=== PATIENT | female | born 1970 | race American Indian/Alaskan Native ===

== ENCOUNTER 2016-07-25 18:03 | Emergency (ER) | payer SELFPAY ==
--- NOTE | 2016-07-25 18:44 | Emergency Department Report ---
Chief Complaint: Abdominal Pain Stated Complaint: SIDE PAIN Time Seen by Provider: 07/25/16 18:41 - HPI History of Present Illness: Patient is a 45 y/o female who presents due to bilateral flank pain x 2 hours ago. Patient denies any dysuria, hematuria. Patient c/o vaginal discharge. Patient denies any nausea, vomiting or diarrhea. Patient denies any fever or chills - ROS Review of Systems: see hpi - Exam Vital Signs: Vital Signs 07/25/16 18:14 Temperature 98.2 F Pulse Rate 106 H Respiratory 18 Rate Blood Pressure 164/102 O2 Sat by Pulse 100 Oximetry Physical Exam: patient had bilateral flank tenderness MSE screening note: Focused history and physical exam performed. Due to findings the following was ordered:abd pain protocol ED Disposition for MSE Condition: Stable Instructions: Abdominal Pain (ED)
[2016-07-25 20:07] LABS: Basophils % (Auto) 1.3 % (0.0-1.8); Eosinophils % (Auto) 1.1 % (0.0-4.3); Hematocrit 26.7 % (30.3-42.9); Mean Corpuscular HGB Conc 30 % (30-34); Platelet Count 539 K/mm3 (140-440); Red Blood Count 4.27 M/mm3 (3.65-5.03); Red Cell Distribution Width 18.3 % (13.2-15.2); White Blood Count 8.1 K/mm3 (4.5-11.0)
[2016-07-25 20:08] LABS: Mean Corpuscular Hemoglobin 19 pg (28-32); Mean Corpuscular Volume 63 fl (79-97)
[2016-07-25 20:22] LABS: Alanine Aminotransferase 8 units/L (7-56); Albumin 4.4 g/dL (3.9-5); Albumin/Globulin Ratio 1.2 %; Alkaline Phosphatase 68 units/L (35-129); BUN/Creatinine Ratio 16.66; Bilirubin,Total 0.2 mg/dL (0.1-1.2); Blood Urea Nitrogen 10 mg/dL (7-17); Calcium 8.9 mg/dL (8.4-10.2); Carbon Dioxide 25 mmol/L (22-30); Chloride 98.8 mmol/L (98-107); Glucose 83 mg/dL (65-100); Lipase 32 units/L (13-60); Potassium 3.6 mmol/L (3.6-5.0); Sodium 140 mmol/L (137-145); Total Protein 8.2 g/dL (6.3-8.2)
[2016-07-25 20:28] LABS: Bilirubin,Direct < 0.2 mg/dL (0-0.2)
[2016-07-25 20:29] LABS: Anion Gap 20 mmol/L
[2016-07-25 21:49] LABS: Bilirubin,Urine NEG (Negative); Blood,Urine NEG (Negative); Ketones,Urine NEG (Negative); Leukocyte Esterase,Urine NEG (Negative); Mucus,Urine FEW /HPF; Nitrite,Urine NEG (Negative); Protein,Urine <15 mg/dL mg/dL (Negative); RBC,Urine < 1.0 /HPF (0.0-6.0); Urobilinogen,Urine < 2.0 mg/dL (<2.0)
[2016-07-25 21:53] LABS: WBC,Urine < 1.0 /HPF (0.0-6.0)
[2016-07-26 06:37] VITALS: BP 151/82
--- NOTE | 2016-07-26 06:41 | Emergency Department Report ---
ED General Adult HPI - General Chief complaint: Abdominal Pain Stated complaint: SIDE PAIN Time Seen by Provider: 07/26/16 06:34 Source: patient, RN notes reviewed, old records reviewed Mode of arrival: Ambulatory Limitations: No Limitations - History of Present Illness Initial comments: THIS IS A 45-year-old female, previously unknown to me. Last menstrual period is June 12. She endorses a past medical history of tubal ligation, resolved by lower extremity compartment syndrome, and hypertension. She has a primary care doctor , but cannot RECALL their name. The patient endorses a past medical history of heavy menstruation. She denies hematemesis and bright red blood per rectum. She is not currently vaginally bleeding. The patient presents to the ER with resolved bilateral flank pain. The flank pain was achy, and she reports that she felt constipated. However, she reports that she had a bowel movement. She is passing gas. She denies irritative and obstructive urinary symptoms. She describes nonspecific whitish vaginal discharge. There is no vaginal pain or vaginal burning. She is sexually active with a male partner, denies a history of dyspareunia. No chest pain, no shortness of breath, no leg pain, no leg swelling, no recent trips greater than 4 hours, does not take control tablets. -: Gradual Location: back Severity scale (0 -10): 0 Consistency: now resolved Improves with: none Worsens with: none Associated Symptoms: denies: confusion, chest pain, cough, diaphoresis, fever/ chills, headaches, loss of appetite, malaise, nausea/vomiting, rash, seizure, shortness of breath, syncope, weakness - Related Data Home Medications Medication Instructions Recorded Confirmed Last Taken Hydrochlorothiazide [HCTZ] 25 mg PO DAILY 07/26/16 07/26/16 07/25/16 Lisinopril [Zestril] 20 mg PO QDAY 07/26/16 07/26/16 07/25/16 Previous Rx's Medication Instructions Recorded Last Taken Type Butoconazole Nitrate [Gynazole 1] 5 gm VG QDAY #3 crm.pf.christin 07/26/16 Unknown Rx Allergies Allergy/AdvReac Type Severity Reaction Status Date / Time codeine Allergy Unknown Verified 07/25/16 18:17 promethazine HCl Allergy Unknown Verified 07/25/16 18:17 [From Phenergan] ED Review of Systems ROS: Stated complaint: SIDE PAIN Other details as noted in HPI Constitutional: denies: malaise, weakness Eyes: denies: eye discharge ENT: denies: epistaxis Respiratory: denies: stridor Gastrointestinal: abdominal pain Genitourinary: discharge, abnormal menses Musculoskeletal: denies: arthralgia, myalgia Skin: denies: rash Neurological: denies: as per HPI, headache, weakness Psychiatric: denies: depression ED Past Medical Hx - Past Medical History Hx Hypertension: Yes - Surgical History Additional Surgical History: RLL compartment syndrome, tubaligation - Social History Smoking Status: Never Smoker Substance Use Type: None - Medications Home Medications: Home Medications Medication Instructions Recorded Confirmed Last Taken Type Butoconazole Nitrate [Gynazole 1] 5 gm VG QDAY #3 crm.pf.christin 07/26/16 Unknown Rx Hydrochlorothiazide [HCTZ] 25 mg PO DAILY 07/26/16 07/26/16 07/25/16 History Lisinopril [Zestril] 20 mg PO QDAY 07/26/16 07/26/16 07/25/16 History ED Physical Exam - General Limitations: No Limitations General appearance: alert, in no apparent distress - Head Head exam: Present: atraumatic, normocephalic - Eye Eye exam: Present: normal appearance, EOMI. Absent: nystagmus - ENT ENT exam: Present: normal exam, normal orophraynx, mucous membranes moist, normal external ear exam - Neck Neck exam: Present: normal inspection, full ROM. Absent: tenderness, meningismus - Respiratory Respiratory exam: Present: normal lung sounds bilaterally. Absent: respiratory distress, wheezes, rales, rhonchi, stridor, decreased breath sounds - Cardiovascular Cardiovascular Exam: Present: regular rate, normal rhythm, normal heart sounds. Absent: bradycardia, tachycardia, irregular rhythm, systolic murmur, diastolic murmur, rubs, gallop - GI/Abdominal GI/Abdominal exam: Present: soft, normal bowel sounds. Absent: distended, tenderness, guarding, rebound, rigid, pulsatile mass - External exam: Present: normal external exam Speculum exam: Present: normal speculum exam, vaginal discharge. Absent: vaginal bleeding Bi-manual exam: Present: normal bi-manual exam, other (escorted by Rancho Santos RN) . Absent: cervical motion tendernes, adnexal tenderness, adnexal mass - Extremities Exam Extremities exam: Present: normal inspection, full ROM, normal capillary refill. Absent: tenderness, pedal edema, joint swelling, calf tenderness - Back Exam Back exam: Present: normal inspection, full ROM. Absent: tenderness, CVA tenderness (R), CVA tenderness (L), muscle spasm, paraspinal tenderness, vertebral tenderness - Neurological Exam Neurological exam: Present: alert, oriented X3, normal gait, other (Extraocular movements intact. Tongue midline. No facial droop. Facial sensation intact to light touch in the V1, V2, V3 distribution bilaterally. 5 and 5 strength in 4 extremities.. Sensation is intact to light touch in 4 extremities.). Absent : motor sensory deficit - Psychiatric Psychiatric exam: Present: normal affect, normal mood - Skin Skin exam: Present: warm, dry, intact, normal color. Absent: rash ED Course Vital Signs 07/25/16 07/26/16 07/26/16 18:14 03:25 06:37 Temperature 98.2 F 97.8 F Pulse Rate 106 H 68 73 Respiratory 18 20 18 Rate Blood Pressure 164/102 Blood Pressure 149/108 151/82 [Right] O2 Sat by Pulse 100 100 97 Oximetry 07/26/16 08:00 Temperature Pulse Rate Respiratory 18 Rate Blood Pressure Blood Pressure [Right] O2 Sat by Pulse 97 Oximetry - Reevaluation(s) Reevaluation #1: 07/26/16 07:40 Differential diagnosis: Urinary tract infection, vaginitis, constipation, asymptomatic anemia, asymptomatic hypertension Assessment and plan: 55-year-old female with resolved bilateral flank pain. She is afebrile with reassuring vital signs, with the exception of slight hypertension. There is no CVA tenderness, there is no abdominal tenderness, there is no gynecologic tenderness. She declines pain medication. She is somewhat anemic, this is most likely chronic by history, and she is asymptomatic. She is instructed to follow-up with a coil connector for her asymptomatic anemia. She is instructed to follow with her primary care doctor for her hypertension. Vital signs have improved prior to discharge. Wet prep is pending. ED Medical Decision Making - Lab Data Result diagrams: 07/25/16 19:37 07/25/16 19:37 Vital Signs 07/25/16 07/26/16 07/26/16 18:14 03:25 06:37 Temperature 98.2 F 97.8 F Pulse Rate 106 H 68 73 Respiratory 18 20 18 Rate Blood Pressure 164/102 Blood Pressure 149/108 151/82 [Right] O2 Sat by Pulse 100 100 97 Oximetry Lab Results 07/25/16 07/25/16 07/25/16 Range/Units 19:37 19:37 Unknown WBC 8.1 (4.5-11.0) K/mm3 RBC 4.27 (3.65-5.03) M/mm3 Hgb 8.0 L (10.1-14.3) gm/dl Hct 26.7 L (30.3-42.9) % MCV 63 L (79-97) fl MCH 19 L (28-32) pg MCHC 30 (30-34) % RDW 18.3 H (13.2-15.2) % Plt Count 539 H (140-440) K/mm3 Lymph % (Auto) 45.3 H (13.4-35.0) % [place] % (Auto) 11.4 H (0.0-7.3) % Eos % (Auto) 1.1 (0.0-4.3) % Baso % (Auto) 1.3 (0.0-1.8) % Lymph # 3.7 (1.2-5.4) K/mm3 [place] # 0.9 H (0.0-0.8) K/mm3 Eos # 0.1 (0.0-0.4) K/mm3 Baso # 0.1 (0.0-0.1) K/mm3 Seg Neutrophils % 40.9 (40.0-70.0) % Seg Neutrophils # 3.3 (1.8-7.7) K/mm3 Sodium 140 (137-145) mmol/L Potassium 3.6 (3.6-5.0) mmol/L Chloride 98.8 (98-107) mmol/L Carbon Dioxide 25 (22-30) mmol/L Anion Gap 20 mmol/L BUN 10 (7-17) mg/dL Creatinine 0.6 L (0.7-1.2) mg/dL Estimated GFR > 60 ml/min BUN/Creatinine Ratio 16.66 % Glucose 83 (65-100) mg/dL Calcium 8.9 (8.4-10.2) mg/dL Total Bilirubin 0.2 (0.1-1.2) mg/dL Direct Bilirubin < 0.2 (0-0.2) mg/dL Indirect Bilirubin 0.0 mg/dL AST 17 (5-40) units/L ALT 8 (7-56) units/L Alkaline Phosphatase 68 (35-129) units/L Total Protein 8.2 (6.3-8.2) g/dL Albumin 4.4 (3.9-5) g/dL Albumin/Globulin Ratio 1.2 % Lipase 32 (13-60) units/L Urine Color Straw (Yellow) Urine Turbidity Clear (Clear) Urine pH 7.0 (5.0-7.0) Ur Specific [place] 1.014 (1.003-1.030) Urine Protein <15 mg/dl (Negative) mg/dL Urine Glucose (UA) Neg (Negative) mg/dL Urine Ketones Neg (Negative) mg/dL Urine Blood Neg (Negative) Urine Nitrite Neg (Negative) Ur Reducing Substances Not Reportable Urine Bilirubin Neg (Negative) Urine Ictotest Not Reportable Urine Urobilinogen < 2.0 (<2.0) mg/dL Ur Leukocyte Esterase Neg (Negative) Urine WBC (Auto) < 1.0 (0.0-6.0) /HPF Urine RBC (Auto) < 1.0 (0.0-6.0) /HPF U Epithel Cells (Auto) < 1.0 (0-13.0) /HPF Urine Mucus Few /HPF Urine HCG, Qual Negative (Negative) Urinalysis and history do not support the diagnosis of urinary tract infection or pyelonephritis Critical care attestation.: If time is entered above; I have spent that time in minutes in the direct care of this critically ill patient, excluding procedure time. ED Disposition Clinical Impression: Anemia, Vaginal discharge, Hypertension Disposition: DISCHARGED TO HOME OR SELFCARE Is pt being admited?: No Does the pt Need Aspirin: No Condition: Stable Instructions: Hypertension (ED), Anemia (ED), Vaginitis (ED), Bacterial Vaginosis (ED) Additional Instructions: Laboratory studies indicated mild anemia, otherwise not . Cultures were sent today, results will be available in the next 3-5 days. Have a primary care doctor contact medical records department to obtain culture results. Follow-up with a primary care doctor or coil connector within the next 7-[address] Davison is a local coil connector. Dr. Goss is a local primary care doctor. Please note that her blood pressure was somewhat elevated. This should be followed up by a primary care doctor within the recommended timeframe. Long- term complications of elevated blood pressure/hypertension includes stroke, heart attack, disability, , paralysis, loss of quality of life. Return to the ER right away with new pain, worsened pain, migration of pain, fevers chills, intractable nausea or vomiting, inability to tolerate liquid feeds. Wet prep suggested use infection, use the vaginal suppositories directed for the next 3 days. Prescriptions: Butoconazole Nitrate [Gynazole 1] 5 gm VG QDAY #3 crm.pf.christin Referrals: PRIMARY CARE, [Primary Care Provider] - 3-5 Days GEORGE DAVISON MD [Staff Physician] - 3-5 Days NOLVIA GOSS MD [Staff Physician] - 3-5 Days
== END 2016-07-26 08:00 | disposition home or self-care (01) ==
LOC: ED 18:03
DX: D64.9 Anemia, unspecified (principal); N89.8 Other specified noninflammatory disorders of vagina; I10 Essential (primary) hypertension; Z88.5 Allergy status to narcotic agent; Z88.8 Allergy status to other drugs, medicaments and biological substances; Z98.51 Tubal ligation status
CPT/HCPCS: 36415; 80048; 80074; 81001; 81025; 83690; 85025; 87210; 87591

== ENCOUNTER 2018-08-11 09:46 | Emergency (ER) | payer OTHER ==
[2018-08-11 12:29] VITALS: BP 147/92
[2018-08-11] MEDS ORDERED: PERCOCET 5/325 PO ONE (12:36)
[2018-08-11] MEDS ORDERED: TORADOL IM ONE (12:36)
[2018-08-11] MEDS ORDERED: BENADRYL PO ONE (12:36)
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
== END 2018-08-11 15:12 | disposition home or self-care (01) ==
LOC: ED 09:46
DX: S16.1XXA Strain of muscle, fascia and tendon at neck level, initial encounter (principal); S66.912A Strain of unspecified muscle, fascia and tendon at wrist and hand level, left hand, initial encounter; I10 Essential (primary) hypertension; Z90.89 Acquired absence of other organs; Z98.51 Tubal ligation status; Z88.1 Allergy status to other antibiotic agents; Z88.4 Allergy status to anesthetic agent; Z79.899 Other long term (current) drug therapy; V49.9XXA Car occupant (driver) (passenger) injured in unspecified traffic accident, initial encounter; Y93.89 Activity, other specified; Y99.8 Other external cause status; Y92.410 Unspecified street and highway as the place of occurrence of the external cause
CPT/HCPCS: 29125; 70450; 72125; 73110; 96372; 99285; J1885